=== PATIENT | female | born 2005 | race African-American/Black ===

== ENCOUNTER 2025-04-02 16:24 | Emergency (ER) | payer MEDICAID ==
[~2025-04-02] VITALS: Ht 167.6 cm; Wt 91.0 kg
[2025-04-02 16:42] VITALS: O2SAT 100
[2025-04-02 17:10] LABS: BASOPHILS % 1.0 % (0.0-2.0); EOSINOPHILS % 2.5 % (0.0-5.0); HEMATOCRIT. 40.7 % (36.0-48.0); HEMOGLOBIN. 13.8 g/dL (12.0-16.0); LYMPHOCYTES % 49.0 % (20.0-50.0); MEAN PLATELET VOLUME 7.8 fl (7.4-10.4); MONOCYTES % 9.6 % (2.0-8.0); NEUTROPHILS % 37.9 % (40.0-76.0); PLATELET 308 x1000/uL (130-400); RED BLOOD CELL COUNT 4.62 mill/uL (4.2-5.4); RED CELL DISTRIBUTION WIDTH 13.8 % (11.6-14.6)
[2025-04-02 17:26] LABS: CREATININE 1.0 mg/dL (0.6-1.0); UREA NITROGEN BLOOD < 5 mg/dL (9-23)
[2025-04-02 17:27] LABS: TROPONIN I HIGH SENSITIVITY < 4 ng/L (3.0-34)
[2025-04-02 17:30] LABS: HCG SCREEN NEGATIVE
[2025-04-02] MEDS: LORAZEPAM 0.5MG TABLET PO ONE (17:30)
[2025-04-02] MEDS: SODIUM CHLORIDE 0.9% 1,000 ML IV ONE (20:41)
[2025-04-02] MEDS ORDERED: LORA-249 MT (21:05)
[2025-04-02 23:19] VITALS: BP 130/99; PULSE 100; RESP 16; TEMP 36.9; O2SAT 100
[2025-04-02] MEDS ORDERED: IOHEXOL-350 100 ML BOTTLE ONE (23:41)
== END 2025-04-02 23:29 | disposition home or self-care (01) ==
LOC: ER 16:24
DX: R00.2 Palpitations (principal); F32.A Depression, unspecified; R51.9 Headache, unspecified
CPT/HCPCS: 99291; 71275; 96360; 71045; 80048; 84703; 84443; 85025; 85379; 84484; 36415; 70450; 93005; Q9967; J7030